=== PATIENT | male | born 1955 | race Caucasian/White ===

== ENCOUNTER 2018-01-30 14:49 | Emergency (ER) | payer SELFPAY, OTHER | END 2018-01-30 15:01 | disposition left against medical advice (07) | LOC: E/R 14:49 | DX: Z53.21 Procedure and treatment not carried out due to patient leaving prior to being seen by health care provider (principal) ==

== ENCOUNTER 2018-02-12 08:32 | Emergency (ER) | payer OTHER | END 2018-02-12 09:32 | disposition home or self-care (01) | LOC: FTE 08:32 | DX: L02.425 Furuncle of right lower limb (principal); I10 Essential (primary) hypertension; E11.9 Type 2 diabetes mellitus without complications; L02.426 Furuncle of left lower limb; Z79.4 Long term (current) use of insulin | CPT/HCPCS: 99283 ==

== ENCOUNTER 2019-03-04 06:34 | Day surgery (SDC) | payer OTHER | END 2019-03-05 08:36 | disposition home or self-care (01) | LOC: GIL 06:34 | DX: K21.0 Gastro-esophageal reflux disease with esophagitis (principal); Z53.8 Procedure and treatment not carried out for other reasons ==

== ENCOUNTER 2019-05-16 07:10 | Emergency (ER) | payer OTHER ==
[2019-05-16] MEDS: KETOROLAC 30 MG INJ IM (07:59)
== END 2019-05-16 09:19 | disposition home or self-care (01) ==
LOC: FTE 07:10
DX: M54.2 Cervicalgia (principal); I10 Essential (primary) hypertension; E11.9 Type 2 diabetes mellitus without complications; Z79.4 Long term (current) use of insulin
CPT/HCPCS: 70360; 96372; 99284-25

== ENCOUNTER 2019-06-08 09:50 | Day surgery (SDC) | payer OTHER ==
[2019-06-08] MEDS ORDERED: PROPOFOL 60 ML (11:38)
[2019-06-08] MEDS ORDERED: PROPOFOL 200 MG INJ (11:38)
[2019-06-08] MEDS ORDERED: LIDOCAINE 2% (SDV) 5 ML INJ (11:39)
[2019-06-08] MEDS ORDERED: EPHEDrine 25 MG/5 ML SYG IV (12:30)
[2019-06-08] MEDS ORDERED: FENTAnyl 50 MCG/ML VIAL IV ×2 (12:30)
[2019-06-08] MEDS ORDERED: LABETALOL HCL 20MG INJ IV (12:30)
[2019-06-08] MEDS ORDERED: ONDANSETRON 4 MG INJ IV (12:30)
[2019-06-08] MEDS ORDERED: ALBUTEROL 0.083% (NEB) 2.5 MG/3 ML AMP HHN (12:30)
== END 2019-06-08 15:24 | disposition home or self-care (01) ==
LOC: GIL 09:50
DX: K21.9 Gastro-esophageal reflux disease without esophagitis (principal); K29.70 Gastritis, unspecified, without bleeding; K64.8 Other hemorrhoids; D50.9 Iron deficiency anemia, unspecified; E11.9 Type 2 diabetes mellitus without complications; E78.5 Hyperlipidemia, unspecified
CPT/HCPCS: 43239; 82962; 88305; 88312

== ENCOUNTER 2019-06-24 14:28 | Observation (INO) | payer OTHER ==
[2019-06-24] MEDS ORDERED: LIDOCAINE 1% (MPF) 30 ML INJ (14:48)
[2019-06-24] MEDS ORDERED: BUPIVACAINE 0.5% (SDV) 30 ML INJ (14:48)
[2019-06-24 16:10] LABS: ADD MAN DIFF? NO
[2019-06-24 16:13] LABS: WHITE BLOOD COUNT 9.7 10^3/ul (4.8-10.8)
[2019-06-24 16:13] LABS: BASOPHIL # 0.1 10^3/ul (0.0-0.1); BASOPHILS % 0.5 % (0.0-2.0); EOSINOPHILS # 0.3 10^3/ul (0.0-0.5); EOSINOPHILS % 2.6 % (0.0-7.0); HEMATOCRIT 40.5 % (42.0-52.0); LYMPHOCYTES # 2.6 10^3/ul (0.8-2.9); MEAN CORPUSCULAR HEMOGLOBIN 31.5 pg (29.0-33.0); MEAN CORPUSCULAR HGB CONC 34.6 g/dl (32.0-37.0); MEAN PLATELET VOLUME 11.8 fl (7.4-10.4); MONOCYTE # 0.9 10^3/ul (0.3-0.9); MONOCYTES % 9.4 % (0.0-11.0); NEUTROPHIL # 5.8 10^3/ul (1.6-7.5); NEUTROPHILS % 60.2 % (39.0-77.0); PLATELET COUNT 225 10^3/UL (140-415); RED BLOOD COUNT 4.45 10^6/ul (4.70-6.10); RED CELL DISTRIBUTION WIDTH 12.9 % (11.5-14.5)
[2019-06-24 16:33] LABS: INR 0.84; PROTIME 11.6 Sec (11.9-14.9); PT RATIO 0.9
[2019-06-24 16:34] LABS: ANION GAP 10 (5-13); BLOOD UREA NITROGEN 18 mg/dl (7-20); CALCIUM 9.7 mg/dl (8.4-10.2); CARBON DIOXIDE 27 mmol/L (21-31); CHLORIDE 101 mmol/L (97-110); CREATININE 0.79 mg/dl (0.61-1.24); Estimated GFR > 60 mL/min (>60); GLUCOSE 166 mg/dl (70-220); POTASSIUM 4.5 mmol/L (3.5-5.1); SODIUM 138 mmol/L (135-144)
[2019-06-24] MEDS: LACTATED RINGER'S 1,000 ML IV (16:51)
[2019-06-24] MEDS ORDERED: PROPOFOL 200 MG INJ (17:53)
[2019-06-24] MEDS ORDERED: ROPIVACAINE 0.5 % 30 ML VIAL (17:53)
[2019-06-24] MEDS ORDERED: MIDAZOLAM 1 MG/ML 2 ML INJ (17:56)
[2019-06-24] MEDS: CEFAZOLIN 2 GM/50 ML (PMX) 50 ML IVPB (18:21)
[2019-06-24] MEDS ORDERED: CEFAZOLIN 1 GM INJ (18:27)
[2019-06-24] MEDS ORDERED: FENTAnyl 50 MCG/ML VIAL (18:27)
[2019-06-24] MEDS ORDERED: DIPHENHYDRAMINE 50 MG INJ IV (19:30)
[2019-06-24] MEDS ORDERED: FENTAnyl 50 MCG/ML VIAL IV ×2 (19:30)
[2019-06-24] MEDS ORDERED: MEPERIDINE 25 MG INJ IV (19:30)
[2019-06-24] MEDS ORDERED: ONDANSETRON 4 MG INJ IV (19:30)
[2019-06-24] MEDS ORDERED: HYDROmorphONE 1 MG/5 ML IV SYRINGE IV ×2 (19:30)
[2019-06-24] MEDS: FENTAnyl 50 MCG/ML VIAL IV (20:43)
[2019-06-24] MEDS: HYDROmorphONE 1 MG/5 ML IV SYRINGE IV (20:43)
[2019-06-24] MEDS: KETOROLAC 30 MG INJ IV (21:13)
[2019-06-24] MEDS ORDERED: OXYCODONE/ACETAMINOPHEN (5/325) TAB PO (23:00)
[2019-06-25] MEDS: LEVOTHYROXINE 100 MCG TAB PO (07:00)
[2019-06-25] MEDS ORDERED: HYDROCODONE/APAP (5/325) TAB PO ×2 (07:00)
[2019-06-25] MEDS ORDERED: ONDANSETRON 4 MG INJ IV (07:00)
[2019-06-25] MEDS ORDERED: ACETAMINOPHEN 325 MG TAB PO (07:00)
[2019-06-25] MEDS ORDERED: ALBUTEROL/IPRATROPIUM (NEB) 3 ML AMP HHN (07:00)
[2019-06-25] MEDS ORDERED: NACL 0.9% 3 ML SYG IV (07:00)
[2019-06-25] MEDS ORDERED: GLUCAGON 1 MG INJ IM (07:30)
[2019-06-25] MEDS ORDERED: GLUCOSE GEL 15 GRAM TUBE BUCCAL (07:30)
[2019-06-25] MEDS ORDERED: GLUCOSE GEL 15 GRAM TUBE PO ×2 (07:30)
[2019-06-25] MEDS ORDERED: DEXTROSE 50% 50 ML SYRINGE IV ×2 (07:30)
[2019-06-25 07:42] LABS: ADD MAN DIFF? NO
[2019-06-25 07:50] LABS: BASOPHIL # 0.1 10^3/ul (0.0-0.1); BASOPHILS % 0.5 % (0.0-2.0); EOSINOPHILS # 0.3 10^3/ul (0.0-0.5); EOSINOPHILS % 2.6 % (0.0-7.0); HEMATOCRIT 36.7 % (42.0-52.0); HEMOGLOBIN 12.4 g/dl (14.0-18.0); LYMPHOCYTES # 2.2 10^3/ul (0.8-2.9); MEAN CORPUSCULAR HEMOGLOBIN 30.9 pg (29.0-33.0); MEAN CORPUSCULAR HGB CONC 33.8 g/dl (32.0-37.0); MEAN CORPUSCULAR VOLUME 91.5 fl (82.0-101.0); MEAN PLATELET VOLUME 11.8 fl (7.4-10.4); MONOCYTE # 0.9 10^3/ul (0.3-0.9); MONOCYTES % 9.5 % (0.0-11.0); NEUTROPHILS % 64.1 % (39.0-77.0); PLATELET COUNT 196 10^3/UL (140-415); RED BLOOD COUNT 4.01 10^6/ul (4.70-6.10)
[2019-06-25 07:50] LABS: WHITE BLOOD COUNT 9.4 10^3/ul (4.8-10.8)
[2019-06-25] MEDS: INSULIN GLARGINE [LANTus] (100 UNITS/ML) SYG SC (08:03)
[2019-06-25 08:13] LABS: HEMOGLOBIN A1C 8.7 % (0-5.9)
[2019-06-25] MEDS: RANITIDINE 150 MG TAB PO (08:13)
[2019-06-25] MEDS: LISINOPRIL 5 MG TAB PO (08:14)
[2019-06-25 08:19] LABS: ALANINE AMINOTRANSFERASE 35 IU/L (13-69); ALBUMIN 3.4 g/dl (3.3-4.9); ALBUMIN/GLOBULIN RATIO 1.41; ALKALINE PHOSPHATASE 76 IU/L (42-121); ANION GAP 7 (5-13); ASPARTATE AMINO TRANSFERASE 59 IU/L (15-46); BILIRUBIN,INDIRECT 0.5 mg/dl (0-1.1); BILIRUBIN,TOTAL 0.5 mg/dl (0.2-1.3); BLOOD UREA NITROGEN 21 mg/dl (7-20); CALCIUM 8.5 mg/dl (8.4-10.2); CARBON DIOXIDE 28 mmol/L (21-31); CHLORIDE 102 mmol/L (97-110); CREATININE 0.98 mg/dl (0.61-1.24); Estimated GFR > 60 mL/min (>60); GLUCOSE 199 mg/dl (70-220); POTASSIUM 4.5 mmol/L (3.5-5.1); SODIUM 137 mmol/L (135-144); TOTAL PROTEIN 5.8 g/dl (6.1-8.1)
[2019-06-25] MEDS: INSULIN ASPART [NOVOLOG] 3 ML PEN SC (08:27)
[2019-06-25] MEDS ORDERED: ATORVASTATIN 80 MG TAB PO (21:00)
[2019-06-26] MEDS ORDERED: ACCU-CHEK XX (02:00)
== END 2019-06-25 10:37 | disposition home or self-care (01) ==
LOC: SDS 22:58 → REC 22:58 → SDS 14:28 → PP2 06-25 00:40
PROVIDERS: Orthopaedic Surgery Hand Surgery
DX: T84.84XA Pain due to internal orthopedic prosthetic devices, implants and grafts, initial encounter (principal); M67.88 Other specified disorders of synovium and tendon, other site; S52.202A Unspecified fracture of shaft of left ulna, initial encounter for closed fracture; E11.9 Type 2 diabetes mellitus without complications; E78.5 Hyperlipidemia, unspecified; I10 Essential (primary) hypertension; E03.9 Hypothyroidism, unspecified; X58.XXXA Exposure to other specified factors, initial encounter; Y83.8 Other surgical procedures as the cause of abnormal reaction of the patient, or of later complication, without mention of misadventure at the time of the procedure
CPT/HCPCS: 20680; 71045; 73110-LT; 80048; 80053; 82962; 83036; 85025; 85610; 85730; 88300; 93005; G0378